=== PATIENT | female | born 1990 | race Caucasian/White ===

== ENCOUNTER 2018-02-07 11:48 | Emergency (ER) | payer MEDICAID ==
--- NOTE | 2018-02-07 12:38 | EDM.PDOC ---
ED HPI GENERAL MEDICAL PROBLEM - General Chief Complaint: ENT Problem Stated Complaint: EAR PRESSURE Time Seen by Provider: 02/07/18 12:15 Source of Information: Reports: Patient History Limitations: Reports: No Limitations - History of Present Illness INITIAL COMMENTS - FREE TEXT/NARRATIVE: Estee presents to the ER today with complaints of sinus pain/pressure, left ear pain/pressure, congestion, post nasal drip and cough with green mucus production. She reports she was in to the clinic two weeks ago and told she suffered from allergies, instructed to use nasal spray. She reports her symptoms have worsened. She has tried OTC claritin, nasal spray without much relief. 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: Neurological History: Reports: Migraines Endocrine/Metabolic History: Reports: Obesity/BMI 30+ Dermatologic History: Reports: Eczema - Past Surgical History HEENT Surgical History: Reports: Adenoidectomy, Myringotomy w Tube(s), Tonsillectomy GI Surgical History: Reports: Cholecystectomy Female Surgical History: Reports: Tubal Ligation Musculoskeletal Surgical History: Reports: Other (See Below) Other Musculoskeletal Surgeries/Procedures:: ankle surgery Social & Family History - Tobacco Use Smoking Status *Q: Former Smoker Used Tobacco, but Quit: Yes Month/Year Tobacco Last Used: 1 month ago - Caffeine Use Caffeine Use: Reports: Coffee, Energy Drinks, Soda - Recreational Drug Use Recreational Drug Use: No ED ROS ENT - Review of Systems Review Of Systems: See Below Constitutional: Denies: Fever, Chills, Weakness, Fatigue, Night Sweats HEENT: Reports: Ear Pain, Hearing Loss, Other (left ear pain with slight hearing loss/muffled sound). Denies: Dental Pain, Ear Discharge, Eye Discharge , Eye Pain, Nose Pain, Rhinitis, Sinus Problem, Throat Swelling, Vertigo Respiratory: Reports: Cough, Sputum. Denies: Shortness of Breath, Wheezing, Hemoptysis Cardiovascular: Denies: Chest Pain, Blood Pressure Problem, Dyspnea on Exertion , Edema, Lightheadedness, Palpitations, Syncope Endocrine: Reports: No Symptoms GI/Abdominal: Reports: No Symptoms : Reports: No Symptoms Musculoskeletal: Reports: No Symptoms Skin: Reports: Rash, Other (chronic eczema to chest and back, she reports no change.) Neurological: Denies: Confusion, Dizziness, Headache, Numbness, Syncope, Tingling, Weakness Psychiatric: Reports: No Symptoms Hematologic/Lymphatic: Reports: No Symptoms Immunologic: Reports: Seasonal Allergy ED EXAM, ENT - Physical Exam Exam: See Below Text/Narrative:: Estee is an alert, oriented and pleasant 27 year old female presenting with complaints of sinus congestion, left ear pain, pressure and decreased hearing as well as cough with green mucus production. She has tried use of OTC claritin and nasal spray without relief. Exam Limited By: No Limitations General Appearance: Alert, Mild Distress Eye Exam: Bilateral Eye: Normal Inspection, PERRL Ears: Normal External Exam, Normal Canal, Other (Rith TM hearing grossly normal , TM, freire, good refletion of light with visible fluid air bubbles and old scar. Left TM dull, erythematous, tender, bulging without perforatoin or discharge. ) Nose: No Blood, Clear Rhinorrhea, Nasal Swelling, Nasal Tenderness. No: Septal Deformity, Active Bleeding, Dried Blood Mouth/Throat: Normal Inspection, Normal Gums, Normal Lips, Normal Oropharynx, Normal Teeth, Hoarse Voice. No: Tonsillar Erythema, Tonsillar Exudates, Tonsillar Swelling, Uvular Edema Head: Atraumatic, Normocephalic Neck: Normal Inspection, Supple, Non-Tender, Full Range of Motion. No: Lymphadenopathy (R), Lymphadenopathy (L) Respiratory/Chest: No Respiratory Distress, Lungs Clear, Normal Breath Sounds, No Accessory Muscle Use, Chest Non-Tender Cardiovascular: Normal Peripheral Pulses, Regular Rate, Rhythm, No Edema, No Gallop, No Murmur, No Rub Extremities: Normal Inspection, Normal Range of Motion, Non-Tender, No Pedal Edema, Normal Capillary Refill Neurological: Alert, Oriented, CN II-XII Intact, Normal Cognition, Normal Gait, Normal Reflexes, No Motor/Sensory Deficits Psychiatric: Normal Affect, Normal Mood Skin: Warm, Dry, Normal Color, Other (Dried pustular fine rash to chest and abdomen without discharge, fluctuance or erythema. ) Course - Vital Signs Last Recorded V/S: Last Vital Signs Temp 36.7 C 02/07/18 12:02 Pulse 84 02/07/18 12:42 Resp 18 02/07/18 12:02 BP 130/86 02/07/18 12:42 Pulse Ox 97 02/07/18 12:02 Departure - Departure Time of Disposition: 12:37 Disposition: Home, Self-Care 01 Condition: Good Clinical Impression: Otitis media, Allergic rhinitis, Congestion of nasal sinus - Discharge Information Referrals: PCP,None [Primary Care Provider] - Forms: ED Department Discharge Additional Instructions: You have been evaluated and treated in the emergency room today for left otitis media, allergic rhinitis, congestion of the nasal sinus and allergic conjunctivitis. It would be best for you to keep yourself hydrated, decrease amount of caffeine intake. Take: Azithromycin as directed for otitis media olopatadine ophthalmic eye drop, one drop to each eye twice per day. chlorpheniramine 4mg by mouth eery 4 to 6 hours to help with congestion. Pseudoephedrine 120mg by mouth once a day to help with congestion. This medication can cause palpitations or increased heart rate, make sure to decrease caffeine intake when using. Only use for as long as needed to help with congestion. Cetirizine (zyrtec) 10mg by mouth daily for seasonal allergies. You can keep using the nasal spray that has been prescribed. Consider follow up with a primary provider to complete allergy testing. Great job with stopping cigarette use!! Keep it up!! - Assessment/Plan Assessment:: left otitis media, allergic rhinitis, congestion of the nasal sinus and allergic conjunctivitis. Plan: Patient evaluated and treated in the emergency room today for left otitis media , allergic rhinitis, congestion of the nasal sinus and allergic conjunctivitis. It would be best for her to keep yourself hydrated, decrease amount of caffeine intake. Take: Azithromycin as directed for otitis media olopatadine ophthalmic eye drop, one drop to each eye twice per day as needed. chlorpheniramine 4mg by mouth eery 4 to 6 hours to help with congestion as needed. Pseudoephedrine 120mg by mouth once a day to help with congestion as needed. This medication can cause palpitations or increased heart rate, make sure to decrease caffeine intake when using. Only use for as long as needed to help with congestion. Cetirizine (zyrtec) 10mg by mouth daily for seasonal allergies as needed. She can keep using the nasal spray that has been prescribed if she wishes. Consider follow up with a primary provider to complete allergy testing. Continue tobacco cessation.
[2018-02-07 12:42] VITALS: BP 130/86
== END 2018-02-07 12:50 | disposition home or self-care (01) ==
LOC: JP.ED 11:48
DX: H66.92 Otitis media, unspecified, left ear (principal); J30.9 Allergic rhinitis, unspecified; H10.10 Acute atopic conjunctivitis, unspecified eye; Z87.891 Personal history of nicotine dependence; Z91.040 Latex allergy status
CPT/HCPCS: 99283

== ENCOUNTER 2020-06-16 11:48 | Emergency (ER) | payer OTHER, MEDICAID ==
[2020-06-16 12:26] VITALS: BP 151/100; PULSE 113
--- NOTE | 2020-06-16 13:53 | EDM.PDOC ---
ED HPI GENERAL MEDICAL PROBLEM - General Chief Complaint: Lower Extremity Injury/Pain Stated Complaint: TWISTED ANKLE AT WORK Time Seen by Provider: 06/16/20 13:35 Source of Information: Reports: Patient, RN Notes Reviewed History Limitations: Reports: No Limitations - History of Present Illness INITIAL COMMENTS - FREE TEXT/NARRATIVE: Estee presents today for complaints of left ankle pain. She states she rolled and twisted her ankle at least 6 times since working yesterday. She reports pain with ambulation and swelling. 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 She denies fever, chills, nausea, vomiting, change in bowel/bladder or any other injuries. Left Ankle Pain Score (Numeric/FACES): 8 - Related Data Allergies Allergy/AdvReac Type Severity Reaction Status Date / Time latex Allergy Rash Verified 07/25/18 02:44 Home Meds: Home Meds EPINEPHrine [Epipen] 0.3 mg IM ONETIME PRN #2 ml 08/03/18 [Rx] Past Medical History HEENT History: Reports: Allergic Rhinitis, Impaired Vision Gastrointestinal History: Reports: Cholelithiasis Genitourinary History: Reports: Other (See Below) Other Genitourinary History: kidney surgeries has one kidney [employer] ST[employer] MA[employer]GER History: Reports: Neurological History: Reports: Migraines Endocrine/Metabolic History: Reports: Obesity/BMI 30+ Dermatologic History: Reports: Eczema - Infectious Disease History Infectious Disease History: Reports: MRSA, 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, Other - Past Surgical History HEENT Surgical History: Reports: Adenoidectomy, Myringotomy w Tube(s), Tonsillectomy GI Surgical History: Reports: Appendectomy, Cholecystectomy Female Surgical History: Reports: Tubal Ligation Musculoskeletal Surgical History: Reports: Other (See Below) Other Musculoskeletal Surgeries/Procedures:: ankle surgery Social & Family History - Tobacco Use Smoking Status *Q: Current Every Day Smoker Years of Tobacco use: 17 Packs/Tins Daily: 0.5 - Caffeine Use Caffeine Use: Reports: Coffee, Soda, Tea - Recreational Drug Use Recreational Drug Use: No Review of Systems - Review of Systems Review Of Systems: See Below Constitutional: Reports: No Symptoms Respiratory: Reports: No Symptoms Cardiovascular: Reports: No Symptoms GI/Abdominal: Reports: No Symptoms Musculoskeletal: Reports: Other (left ankle pain and edema) Skin: Reports: No Symptoms Neurological: Reports: No Symptoms Psychiatric: Reports: No Symptoms ED EXAM, GENERAL - Physical Exam Exam: See Below Exam Limited By: No Limitations General Appearance: Alert, WD/WN, No Apparent Distress Head: Atraumatic, Normocephalic Neck: Normal Inspection, Supple, Non-Tender, Full Range of Motion. No: Lymphadenopathy (R), Lymphadenopathy (L) Respiratory/Chest: No Respiratory Distress, Normal Breath Sounds, No Accessory Muscle Use, Chest Non-Tender. No: Crackles, Rales, Rhonchi, Wheezing Cardiovascular: Normal Peripheral Pulses, Regular Rate, Rhythm, No Edema, No Murmur, No Rub Peripheral Pulses: 2+: Dorsalis Pedis (L), Dorsalis Pedis (R) Back Exam: Normal Inspection, Full Range of Motion. No: CVA Tenderness (R), CVA Tenderness (L) Extremities: Normal Capillary Refill, Limited Range of Motion. No: Increased Warmth, Mottled, Pallor, Redness (decreased ROM left ankle, edema to lateral ankle with point tenderness) Neurological: Alert, Oriented, Normal Cognition, No Motor/Sensory Deficits Psychiatric: Normal Affect, Normal Mood Skin Exam: Warm, Dry, Intact, Normal Color, No Rash. No: Erythema, Rash Lymphatic: No Adenopathy Course - Vital Signs Last Recorded V/S: Last Vital Signs Temp 36.9 C 06/16/20 12:24 Pulse 113 H 06/16/20 12:24 Resp 16 06/16/20 12:24 BP 151/100 H 06/16/20 12:24 Pulse Ox 99 06/16/20 12:24 - Radiology Interpretation Free Text/Narrative:: Patient x-ray left ankle reviewed, possible non-displaced lateral malleolar fracture left ankle. Walking boot provided Crutches Rest, ice, elevate to help with pain Tylenol 1000mg by mouth for pain as needed Follow up with ortho in 7 to 10 days Repeat BP 142/88 HR 88 Departure - Departure Time of Disposition: 14:54 Disposition: Home, Self-Care 01 Clinical Impression: Left ankle sprain, Closed nondisplaced fracture of lateral malleolus - Discharge Information *PRESCRIPTION DRUG MONITORING PROGRAM REVIEWED*: Not Applicable *COPY OF PRESCRIPTION DRUG MONITORING REPORT IN PATIENT INDRA: Not Applicable Instructions: Ankle Sprain, [id number] Referrals: PCP,None [Primary Care Provider] - Forms: ED Department Discharge Additional Instructions: You have been evaluated and treated for left ankle sprain/possible lateral malleolus fracture. Walking boot provided Crutches Rest, ice, elevate to help with pain Tylenol 1000mg by mouth for pain as needed Follow up with Orthopedic in 7 to 10 days for a recheck. Referral to [facility]. Rivera warp, ice, ibuprofen and ankle brace to help with pain. Return as needed. Patient able to work with restrictions of no climbing, stairs, long periods of standing due to injury. Ortho follow up needed in 7 to 10 days. Sepsis Event Note (ED) - Evaluation Sepsis Screening Result: No Definite Risk - Focused Exam Vital Signs: Vital Signs Temp Pulse Resp BP Pulse Ox 06/16/20 12:24 36.9 C 113 H 16 151/100 H 99 - Assessment/Plan Assessment:: Left ankle sprain, Closed nondisplaced fracture of lateral malleolus Plan: Patient evaluated and treated for left ankle sprain/possible lateral malleolus fracture. Walking boot provided Crutches Rest, ice, elevate to help with pain Tylenol 1000mg by mouth for pain as needed Follow up with Orthopedic in 7 to 10 days for a recheck. Referral to [facility]. Rivera warp, ice, ibuprofen and ankle brace to help with pain. Return as needed. Patient able to work with restrictions of no climbing, stairs, long periods of standing due to injury. Ortho follow up needed in 7 to 10 days.
--- NOTE | 2020-06-16 15:26 | CR ---
Ankle Min 3V Lt CLINICAL HISTORY: Left ankle pain FINDINGS: The soft tissues are generally prominent. No acute fracture or dislocation is noted. Ankle mortise is intact. Articular surfaces are smooth Impression: No fracture or dislocation
== END 2020-06-16 15:05 | disposition home or self-care (01) ==
LOC: JP.ED 11:48
DX: S82.65XA Nondisplaced fracture of lateral malleolus of left fibula, initial encounter for closed fracture (principal); S93.402A Sprain of unspecified ligament of left ankle, initial encounter; E66.9 Obesity, unspecified; F17.210 Nicotine dependence, cigarettes, uncomplicated; Z91.040 Latex allergy status; X50.1XXA Overexertion from prolonged static or awkward postures, initial encounter
CPT/HCPCS: 73610-26-LT; 73610-LT; 99283

== ENCOUNTER 2020-08-19 20:50 | Emergency (ER) | payer MEDICAID ==
[2020-08-19 21:34] VITALS: BP 132/92; PULSE 103
[2020-08-19] MEDS ORDERED: Lidocaine 1% with EPINEPHrine 1:100,000 50 ML MDV INFILT ONE (22:09)
--- NOTE | 2020-08-19 22:52 | EDM.PDOC ---
ED HPI GENERAL MEDICAL PROBLEM - General Chief Complaint: Skin Complaint Stated Complaint: BOIL ON LT SIDE OF BUTT Time Seen by Provider: 08/19/20 22:25 Source of Information: Reports: Patient, Family History Limitations: Reports: No Limitations - History of Present Illness INITIAL COMMENTS - FREE TEXT/NARRATIVE: 3-year-old female who is a history of recurring MRSA boils, had a "pimple" on her left buttock 3 or 4 days ago which she tried to pinch and rupture. Instead over the past 3 days it has become much more inflamed and painful. No fevers or chills, no other complaints. Onset: Gradual Duration: Day(s): (3 days) Location: Reports: Other (Left buttock) Associated Symptoms: Reports: No Other Symptoms left buttock boil Pain Score (Numeric/FACES): 4 - Related Data Allergies Allergy/AdvReac Type Severity Reaction Status Date / Time latex Allergy Rash Verified 07/25/18 02:44 Home Meds: Home Meds valACYclovir HCl [valACYclovir] 1 tab PO DAILY 08/19/20 [History] Past Medical History HEENT History: Reports: Allergic Rhinitis, Impaired Vision Gastrointestinal History: Reports: Cholelithiasis Genitourinary History: Reports: Other (See Below) Other Genitourinary History: kidney surgeries has 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: Reports: Musculoskeletal History: Reports: Other (See Below) Other Musculoskeletal History: left ankle pain Neurological History: Reports: Migraines Endocrine/Metabolic History: Reports: Obesity/BMI 30+ Dermatologic History: Reports: Eczema - Infectious Disease History Infectious Disease History: Reports: Herpes, MRSA, Multidrug-Resistant Gram- Negative, Other - Past Surgical History Head Surgeries/Procedures: Reports: None HEENT Surgical History: Reports: Adenoidectomy, Myringotomy w Tube(s), Tonsillectomy GI Surgical History: Reports: Appendectomy, Cholecystectomy Female Surgical History: Reports: Tubal Ligation Musculoskeletal Surgical History: Reports: Other (See Below) Other Musculoskeletal Surgeries/Procedures:: ankle surgery Social & Family History - Family History Family Medical History: No Pertinent Family History - Tobacco Use Tobacco Use Status *Q: Current Every Day Tobacco User Years of Tobacco use: 17 Packs/Tins Daily: 0.7 - Caffeine Use Caffeine Use: Reports: Coffee, Energy Drinks, Soda, Tea - Recreational Drug Use Recreational Drug Use: No ED ROS GENERAL - Review of Systems Review Of Systems: See Below Constitutional: Denies: Fever, Chills HEENT: Reports: No Symptoms Respiratory: Reports: No Symptoms Cardiovascular: Reports: No Symptoms GI/Abdominal: Reports: No Symptoms. Denies: Constipation, Diarrhea : Reports: No Symptoms Neurological: Reports: No Symptoms ED EXAM, SKIN/RASH Exam: See Below Exam Limited By: No Limitations General Appearance: Alert, No Apparent Distress Respiratory/Chest: No Respiratory Distress Cardiovascular: Regular Rate, Rhythm Extremities: Other (Exam of the left buttock reveals a 6 or 7 cm erythematous area, slightly raised with a central scab. It is firm and very tender to palpation, no fluctuance) Neurological: Alert, Oriented Course - Vital Signs Last Recorded V/S: Last Vital Signs Temp 97.1 F 08/19/20 21:32 Pulse 103 H 08/19/20 21:32 Resp 20 08/19/20 21:32 BP 132/92 H 08/19/20 21:32 Pulse Ox 98 08/19/20 21:32 - Orders/Labs/Meds Orders: Active Orders 24 hr Category Date Time Status CULTURE WOUND + SMEAR [RM] Stat Lab 08/19/20 22:54 Results Meds: Medications Discontinued Medications Generic Name Dose Route Start Last Admin Trade Name aRj PRN Reason Stop Dose Admin Lidocaine/Epinephrine 30 ml 08/19/20 22:09 08/19/20 22:48 Xylocaine 1% With Epinephrine 1:100,000 INFILT 08/19/20 22:10 30 ml ONETIME ONE Administration - Re-Assessments/Exams Free Text/Narrative Re-Assessment/Exam: 08/19/20 22:49 The area was covered with Betadine and sterilized, then infiltrated with 1% lidocaine with epinephrine. Using a #11 scalpel a small incision was made and a very small amount of purulent material was expelled, culture obtained. 1 inch iodoform gauze was placed into the incision. Patient was placed on Bactrim DS to take twice daily, given 10 Percocet for extra pain control and encouraged to use warm compresses to the area. She can recheck in 3 to 4 days if not imp roving despite medication. Departure - Departure Time of Disposition: 22:59 Disposition: Home, Self-Care 01 Clinical Impression: Cellulitis of buttock, left - Discharge Information Instructions: Cellulitis, Adult Referrals: PCP,None [Primary Care Provider] - Forms: ED Department Discharge Care Plan Goals: Take antibiotic twice daily for at least 7 days and until healed. Warm compresses to the area will be helpful and use pain control as prescribed. Recheck in the next 3 to 4 days if not improving satisfactorily, or sooner if worsening despite treatment. Sepsis Event Note (ED) - Evaluation Sepsis Screening Result: No Definite Risk - Focused Exam Vital Signs: Vital Signs Temp Pulse Resp BP Pulse Ox 08/19/20 21:32 97.1 F 103 H 20 132/92 H 98 - My Orders Last 24 Hours: My Active Orders 08/19/20 22:54 CULTURE WOUND + SMEAR [RM] Stat - Assessment/Plan Last 24 Hours: My Active Orders 08/19/20 22:54 CULTURE WOUND + SMEAR [RM] Stat
== END 2020-08-19 23:00 | disposition home or self-care (01) ==
LOC: JP.ED 20:50
DX: L03.317 Cellulitis of buttock (principal); F17.210 Nicotine dependence, cigarettes, uncomplicated; E66.9 Obesity, unspecified; Z68.35 Body mass index [BMI] 35.0-35.9, adult; Z91.040 Latex allergy status; Z79.899 Other long term (current) drug therapy
CPT/HCPCS: 10060; 87070; 87077; 87186; 87205; 99283-25

== ENCOUNTER 2021-03-08 21:48 | Emergency (ER) | payer MEDICAID ==
[2021-03-08 22:29] VITALS: BP 149/91; PULSE 87
[2021-03-08] MEDS ORDERED: Dexamethasone 4 MG/ML SDV IVPUSH ONE (23:18)
[2021-03-08] MEDS ORDERED: Prochlorperazine 10 MG/2 ML SDV IVPUSH ONE (23:18)
[2021-03-08] MEDS ORDERED: diphenhydrAMINE 50 MG/ML SDV IVPUSH ONE (23:18)
[2021-03-08] MEDS ORDERED: Ketorolac 30 MG/ML SDV IVPUSH ONE (23:18)
[2021-03-08] MEDS ORDERED: Sodium Chloride 0.9% 10 ML Syringe FLUSH PRN (23:18)
[2021-03-08] MEDS ORDERED: Sodium Chloride 0.9% 1,000 ML IV SCH (23:30)
--- NOTE | 2021-03-09 00:10 | EDM.PDOC ---
ED HPI GENERAL MEDICAL PROBLEM - General Chief Complaint: Headache Stated Complaint: MIGRAINE AND FACIAL NUMBNESS Time Seen by Provider: 03/08/21 23:11 Source of Information: Reports: Patient History Limitations: Reports: No Limitations - History of Present Illness INITIAL COMMENTS - FREE TEXT/NARRATIVE: Estee is a 31-year-old female presenting to the ED for evaluation of severe headache and left facial numbness. Patient also states that she has a fullness in the left ear. She has a history significant for recurrent otitis media and perforation of the left eardrum status post repair in December 2020. The patient is currently on cefdinir and eardrops for otitis media and externa. She denies any fever or chills. Her headache is predominantly left-sided and is causing p hotophobia. Patient states that she cannot tolerate any light and when she closes her eyes she has significant vertigo with room spinning. She is experiencing some nausea but denies any new onset of numbness, tingling, or weakness in the upper or lower extremities. The facial numbness is new. She denies any trauma. She does have a history of migraine but they are never usually this bad. The symptoms started around 2 PM this afternoon. She also reports that she has a nerve impingement in her cervical spine, however, I believe that this is on the right. migraine Pain Score (Numeric/FACES): 8 - Related Data Allergies Allergy/AdvReac Type Severity Reaction Status Date / Time latex Allergy Rash Verified 03/08/21 22:25 Home Meds: Home Meds Cefdinir 300 mg PO BID 03/08/21 [History] Ofloxacin [Floxin 0.3% Otic Soln] 5 drop EARLF BID 03/08/21 [History] Past Medical History HEENT History: Reports: Allergic Rhinitis, Impaired Vision, Otitis Media Gastrointestinal History: Reports: Cholelithiasis Genitourinary History: Reports: Chronic Renal Insuffiency, Other (See Below) Other Genitourinary History: kidney surgeries has one kidney [employer] History: Reports: Musculoskeletal History: Reports: Other (See Below) Other Musculoskeletal History: left ankle pain Neurological History: Reports: Migraines Endocrine/Metabolic History: Reports: Obesity/BMI 30+ Dermatologic History: Reports: Eczema - Infectious Disease History Infectious Disease History: Reports: Chicken Pox, Herpes, Influenza, MRSA, 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, Other, Shingles - Past Surgical History Head Surgeries/Procedures: Reports: None HEENT Surgical History: Reports: Adenoidectomy, Myringotomy w Tube(s), Tonsillectomy, Other (See Below) Other HEENT Surgeries/Procedures: perf eardrum - surgery 01/17 GI Surgical History: Reports: Appendectomy, Cholecystectomy Female Surgical History: Reports: Nephrectomy, Tubal Ligation Musculoskeletal Surgical History: Reports: Other (See Below) Other Musculoskeletal Surgeries/Procedures:: ankle surgery Social & Family History - Family History Family Medical History: No Pertinent Family History - Tobacco Use Tobacco Use Status *Q: Current Every Day Tobacco User Years of Tobacco use: 10 Packs/Tins Daily: 0.5 - Caffeine Use Caffeine Use: Reports: Coffee, Energy Drinks, Soda, Tea ED ROS GENERAL - Review of Systems Review Of Systems: See Below Constitutional: Reports: No Symptoms HEENT: Reports: Ear Pain (Left ear fullness, currently on antibiotics for otitis media.), Vertigo (When eyes are closed), Vision Change (Photophobia and blurred vision) Respiratory: Reports: No Symptoms Cardiovascular: Reports: No Symptoms Endocrine: Reports: No Symptoms GI/Abdominal: Reports: Nausea : Reports: No Symptoms Musculoskeletal: Reports: Neck Pain (Chronic) Skin: Reports: No Symptoms Neurological: Reports: Dizziness (Vertiginous symptoms when eyes are closed), Headache (Severe left-sided throbbing headache), Tingling (Left facial tingling) Psychiatric: Reports: No Symptoms Hematologic/Lymphatic: Reports: No Symptoms Immunologic: Reports: No Symptoms - Physical Exam Exam: See Below Exam Limited By: No Limitations General Appearance: Alert, Anxious, Moderate Distress Eye Exam: Bilateral Eye: EOMI, PERRL Ears: Normal External Exam, Normal Canal, Other (Scarring of the left TM without erythema or distention. The right TM is normal.) Nose: Normal Inspection, Normal Mucosa Throat/Mouth: Normal Inspection, Normal Lips, Normal Oropharynx, Normal Voice, No Airway Compromise Head Exam: Atraumatic, Normocephalic Neck: Normal Inspection, Supple, Full Range of Motion Respiratory/Chest: No Respiratory Distress, Lungs Clear, Normal Breath Sounds Cardiovascular: Normal Peripheral Pulses, Regular Rate, Rhythm, No Murmur GI/Abdominal: Normal Bowel Sounds, Soft, Non-Tender Neuro Exam (Abbreviated): Alert, Oriented, CN II-XII Intact, Normal Cognition, No Motor/Sensory Deficits Extremities: Normal Inspection, Normal Range of Motion Psychiatric: Normal Affect, Normal Mood Skin Exam: Warm, Dry, Intact, Normal Color Course - Vital Signs Last Recorded V/S: Last Vital Signs Temp 36.7 C 03/08/21 22:36 Pulse 87 03/08/21 22:36 Resp 18 03/08/21 22:36 BP 149/91 H 03/08/21 22:36 Pulse Ox 99 03/08/21 22:36 - Orders/Labs/Meds Orders: Active Orders 24 hr Category Date Time Status Sodium Chloride 0.9% [Normal Saline] 1,000 ml Med 03/08/21 23:30 Active IV ASDIRECTED Sodium Chloride 0.9% [Saline Flush] Med 03/08/21 23:18 Active 10 ml FLUSH ASDIRECTED PRN Saline Lock Insert [OM.PC] Routine Oth 03/08/21 23:18 Ordered Medication Orders Sodium Chloride (Normal Saline) 1,000 mls @ 999 mls/hr IV ASDIRECTED KAREN Last Admin: 03/08/21 23:39 Dose: 999 mls/hr Documented by: JEFF Sodium Chloride (Sodium Chloride 0.9% 10 Ml Syringe) 10 ml FLUSH ASDIRECTED PRN PRN Reason: Keep Vein Open Last Admin: 03/08/21 23:40 Dose: 10 ml Documented by: JEFF Meds: Medications Generic Name Dose Route Start Last Admin Trade Name Freq PRN Reason Stop Dose Admin Sodium Chloride 1,000 mls @ 999 mls/hr 03/08/21 23:30 03/08/21 23:39 Normal Saline IV 999 mls/hr ASDIRECTED KAREN Administration Sodium Chloride 10 ml 03/08/21 23:18 03/08/21 23:40 Sodium Chloride 0.9% 10 Ml Syringe FLUSH 10 ml ASDIRECTED PRN Administration Keep Vein Open Discontinued Medications Generic Name Dose Route Start Last Admin Trade Name Freq PRN Reason Stop Dose Admin Dexamethasone 10 mg 03/08/21 23:18 03/08/21 23:41 Dexamethasone 4 Mg/Ml Sdv IVPUSH 03/08/21 23:19 10 mg ONETIME ONE Administration Diphenhydramine HCl 50 mg 03/08/21 23:18 03/08/21 23:39 Diphenhydramine 50 Mg/Ml Sdv IVPUSH 03/08/21 23:19 50 mg ONETIME ONE Administration Ketorolac Tromethamine 30 mg 03/08/21 23:18 03/08/21 23:39 Ketorolac 30 Mg/Ml Sdv IVPUSH 03/08/21 23:19 30 mg ONETIME ONE Administration Prochlorperazine Edisylate 10 mg 03/08/21 23:18 03/08/21 23:39 Prochlorperazine 10 Mg/2 Ml Sdv IVPUSH 03/08/21 23:19 10 mg ONETIME ONE Administration - Re-Assessments/Exams Free Text/Narrative Re-Assessment/Exam: 03/09/21 00:10 we initiated headache protocol giving the patient a liter of IV normal saline, diphenhydramine 50 mg IV, Compazine 10 mg IV, Toradol 15 mg IV, and dexamethasone 10 mg IV. 03/09/21 00:41 patient is feeling much better after receiving the medications and hydration. At this time she is wanting to go home and go to sleep. Indications return to the ED were discussed and she was discharged in satisfactory condition. Departure - Departure Time of Disposition: 00:41 Disposition: Home, Self-Care 01 Clinical Impression: Left facial numbness Headache, migraine, intractable Qualifiers: Migraine type: unspecified Status migrainosus presence: without status migrainosus Qualified Code(s): G43.919 - Migraine, unspecified, intractable, without status migrainosus - Discharge Information Instructions: Migraine Headache, [id number] Referrals: PCP,None [Primary Care Provider] - Forms: ED Department Discharge Care Plan Goals: I am glad you are feeling better after the cocktail of medications. Hopefully by morning when you wake up the headache will be completely gone. Should it significantly worsen, please return to the ED for reevaluation. Sepsis Event Note (ED) - Evaluation Sepsis Screening Result: No Definite Risk - Focused Exam Vital Signs: Vital Signs Temp Pulse Resp BP Pulse Ox 03/08/21 22:36 36.7 C 87 18 149/91 H 99 03/08/21 22:29 87 18 149/91 H 99 03/08/21 21:55 36.6 C 89 16 149/91 H 100 - Problem List & Annotations (1) Headache, migraine, intractable SNOMED Code(s): 182542580 Code(s): G43.919 - MIGRAINE, UNSP, INTRACTABLE, WITHOUT STATUS MIGRAINOSUS Status: Acute Priority: Medium Current Visit: Yes Qualifiers: Migraine type: unspecified Status migrainosus presence: without status migrainosus Qualified Code(s): G43.919 - Migraine, unspecified, intractable, without status migrainosus - Problem List Review Problem List Initiated/Reviewed/Updated: Yes - My Orders Last 24 Hours: My Active Orders 03/08/21 23:18 Sodium Chloride 0.9% [Saline Flush] 10 ml FLUSH ASDIRECTED PRN Saline Lock Insert [OM.PC] Routine 03/08/21 23:30 Sodium Chloride 0.9% [Normal Saline] 1,000 ml IV ASDIRECTED - Assessment/Plan Last 24 Hours: My Active Orders 03/08/21 23:18 Sodium Chloride 0.9% [Saline Flush] 10 ml FLUSH ASDIRECTED PRN Saline Lock Insert [OM.PC] Routine 03/08/21 23:30 Sodium Chloride 0.9% [Normal Saline] 1,000 ml IV ASDIRECTED
== END 2021-03-09 01:01 | disposition home or self-care (01) ==
LOC: JP.ED 21:48
DX: G43.919 Migraine, unspecified, intractable, without status migrainosus (principal); R20.0 Anesthesia of skin; E66.9 Obesity, unspecified; Z68.30 Body mass index [BMI] 30.0-30.9, adult; Z91.040 Latex allergy status; Z72.0 Tobacco use
CPT/HCPCS: 96374; 96375; 99283; J0780; J1100; J1200; J1885; J7030

== ENCOUNTER 2021-06-26 10:58 | Emergency (ER) | payer MEDICAID ==
[2021-06-26] MEDS ORDERED: Sodium Chloride 0.9% 500 ML IV ONE (11:35)
[2021-06-26] MEDS ORDERED: Sodium Chloride 0.9% 10 ML Syringe FLUSH PRN (11:35)
--- NOTE | 2021-06-26 11:38 | EDM.PDOC ---
ED HPI GENERAL MEDICAL PROBLEM - General Chief Complaint: Respiratory Problem Stated Complaint: DIFFICULTY BREATHING Time Seen by Provider: 06/26/21 11:35 Source of Information: Reports: Patient, RN Notes Reviewed History Limitations: Reports: No Limitations - History of Present Illness INITIAL COMMENTS - FREE TEXT/NARRATIVE: 31-year-old female presents with strep, she recently underwent eardrum repair 4 days prior surgical intervention, did report her primary care today complaint of shortness of breath mildly tachycardic she is not hypoxic states shortness of breath gets significantly worse when she exerts herself no chest pain - Related Data Allergies Allergy/AdvReac Type Severity Reaction Status Date / Time latex Allergy Intermediate Rash Verified 06/26/21 11:14 Home Meds: Home Meds Ofloxacin [Floxin 0.3% Otic Soln] 5 drop EARLF BID 03/08/21 [History] Ketorolac [Toradol] 10 mg PO Q6H PRN 06/26/21 [History] Past Medical History HEENT History: Reports: Allergic Rhinitis, Impaired Vision, Otitis Media Respiratory History: Reports: Other (See Below) Other Respiratory History: inflammation between ribs and lungs, flares up occasionally Gastrointestinal History: Reports: Cholelithiasis Genitourinary History: Reports: Chronic Renal Insuffiency, Other (See Below) Other Genitourinary History: kidney surgeries has one kidney [employer]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: Musculoskeletal History: Reports: Other (See Below) Other Musculoskeletal History: left ankle pain Neurological History: Reports: Migraines Endocrine/Metabolic History: Reports: Obesity/BMI 30+ Dermatologic History: Reports: Eczema - Infectious Disease History Infectious Disease History: Reports: Chicken Pox, Herpes, Influenza, MRSA, 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, Other, Shingles - Past Surgical History Head Surgeries/Procedures: Reports: None HEENT Surgical History: Reports: Adenoidectomy, Myringotomy w Tube(s), Tonsillectomy, Other (See Below) Other HEENT Surgeries/Procedures: perf eardrum - surgery 01/17 GI Surgical History: Reports: Appendectomy, Cholecystectomy Female Surgical History: Reports: Nephrectomy, Tubal Ligation Musculoskeletal Surgical History: Reports: Other (See Below) Other Musculoskeletal Surgeries/Procedures:: ankle surgery Social & Family History - Family History Family Medical History: No Pertinent Family History - Tobacco Use Tobacco Use Status *Q: Current Every Day Tobacco User Years of Tobacco use: 16 Packs/Tins Daily: 0.5 - Caffeine Use Caffeine Use: Reports: Coffee, Energy Drinks, Soda, Tea - Recreational Drug Use Recreational Drug Use: No ED ROS GENERAL - Review of Systems Review Of Systems: See Below Constitutional: Reports: No Symptoms HEENT: Reports: No Symptoms Respiratory: Reports: Shortness of Breath. Denies: Wheezing, Cough, Sputum Cardiovascular: Reports: Dyspnea on Exertion GI/Abdominal: Reports: No Symptoms ED EXAM, GENERAL - Physical Exam Exam: See Below Exam Limited By: No Limitations General Appearance: Alert, WD/WN, No Apparent Distress Respiratory/Chest: No Respiratory Distress, Lungs Clear, Normal Breath Sounds, No Accessory Muscle Use, Chest Non-Tender Cardiovascular: No Murmur, Tachycardia GI/Abdominal: Soft, Non-Tender Course - Vital Signs Last Recorded V/S: Last Vital Signs Temp 98.0 F 06/26/21 11:23 Pulse 86 06/26/21 12:39 Resp 18 06/26/21 12:39 BP 144/85 H 06/26/21 12:39 Pulse Ox 99 06/26/21 12:39 - Orders/Labs/Meds Orders: Active Orders 24 hr Category Date Time Status Peripheral IV Care [RC] . DIRECTED Care 06/26/21 11:36 Active Sodium Chloride 0.9% [Normal Saline] 90 ml Med 06/26/21 12:15 Active IV ASDIRECTED Sodium Chloride 0.9% [Saline Flush] Med 06/26/21 11:35 Active 10 ml FLUSH ASDIRECTED PRN Peripheral IV Insertion Adult [OM.PC] Urgent Oth 06/26/21 11:35 Ordered Medication Orders Sodium Chloride (Normal Saline) 90 mls @ 4 mls/sec IV ASDIRECTED KAREN Last Admin: 06/26/21 12:17 Dose: 4 mls/sec Documented by: [email or web address] Sodium Chloride (Sodium Chloride 0.9% 10 Ml Syringe) 10 ml FLUSH ASDIRECTED PRN PRN Reason: Keep Vein Open Last Admin: 06/26/21 11:56 Dose: 10 ml Documented by: [id number] Labs: Laboratory Tests 06/26/21 06/26/21 Range/Units 11:49 11:49 WBC 12.8 H (4.5-11.0) K/uL RBC 5.11 (3.30-5.50) M/uL Hgb 14.2 (12.0-15.0) g/dL Hct 41.8 (36.0-48.0) % MCV 82 (80-98) fL MCH 28 (27-31) pg MCHC 34 (32-36) % Plt Count 307 (150-400) K/uL Neut % (Auto) 73.6 H (36-66) % Lymph % (Auto) 20.1 L (24-44) % Victoria % (Auto) 5.2 (2-6) % Eos % (Auto) 0.9 L (2-4) % Baso % (Auto) 0.2 (0-1) % Sodium 139 L (140-148) mmol/L Potassium 4.1 (3.6-5.2) mmol/L Chloride 103 (100-108) mmol/L Carbon Dioxide 26 (21-32) mmol/L Anion Gap 14.1 H (5.0-14.0) mmol/L BUN 13 (7-18) mg/dL Creatinine 0.9 (0.6-1.0) mg/dL Est Cr Clr Drug Dosing 84.79 mL/min Estimated GFR (MDRD) > 60 (>60) Glucose 102 (74-106) mg/dL Calcium 9.0 (8.5-10.1) mg/dL Troponin I < 0.017 (0.000-0.056) ng/mL Meds: Medications Generic Name Dose Route Start Last Admin Trade Name Freq PRN Reason Stop Dose Admin Sodium Chloride 90 mls @ 4 mls/sec 06/26/21 12:15 06/26/21 12:17 Normal Saline IV 4 mls/sec ASDIRECTED KAREN Administration Sodium Chloride 10 ml 06/26/21 11:35 06/26/21 11:56 Sodium Chloride 0.9% 10 Ml Syringe FLUSH 10 ml ASDIRECTED PRN Administration Keep Vein Open Discontinued Medications Generic Name Dose Route Start Last Admin Trade Name Freq PRN Reason Stop Dose Admin Sodium Chloride 500 mls @ 999 mls/hr 06/26/21 11:35 06/26/21 11:52 Normal Saline IV 06/26/21 12:05 999 mls/hr .BOLUS ONE Administration Iopamidol 100 ml 06/26/21 12:03 06/26/21 12:17 Iopamidol 755 Mg/Ml 100 Ml Bottle IV 06/26/21 12:04 100 ml . DIRECTED ONE Administration Departure - Departure Time of Disposition: 13:17 Disposition: Home, Self-Care 01 Condition: Fair Clinical Impression: Dyspnea on exertion - Discharge Information Instructions: Shortness of Breath, Adult Referrals: Connie Dang CNM [Primary Care Provider] - Forms: ED Department Discharge Additional Instructions: Try prednisone 20 mg once a day for 3 days, recommend follow-up with pulmonary medicine for further evaluation, call return to the emergency department Sepsis Event Note (ED) - Evaluation Sepsis Screening Result: No Definite Risk - Focused Exam Vital Signs: Vital Signs Temp Pulse Resp BP Pulse Ox 06/26/21 12:39 86 18 144/85 H 99 06/26/21 11:23 98.0 F 98 166/94 H 98 06/26/21 11:14 98.0 F 98 15 166/94 H 98 - My Orders Last 24 Hours: My Active Orders 06/26/21 11:35 Sodium Chloride 0.9% [Saline Flush] 10 ml FLUSH ASDIRECTED PRN Peripheral IV Insertion Adult [OM.PC] Urgent 06/26/21 11:36 Peripheral IV Care [RC] . DIRECTED 06/26/21 12:15 Sodium Chloride 0.9% [Normal Saline] 90 ml IV ASDIRECTED - Assessment/Plan Last 24 Hours: My Active Orders 06/26/21 11:35 Sodium Chloride 0.9% [Saline Flush] 10 ml FLUSH ASDIRECTED PRN Peripheral IV Insertion Adult [OM.PC] Urgent 06/26/21 11:36 Peripheral IV Care [RC] . 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 Would try short course of prednisone 20 mg once a day for 3 days just to see if this helps with her chest discomfort also recommend that she follow-up with pulmonary medicine for further evaluation This note was dictated using [employer] voice recognition software please call with any questions on syntax or grammar.
[2021-06-26] MEDS ORDERED: Iopamidol 755 Mg/ML 100 ML Bottle IV ONE (12:03)
[2021-06-26] MEDS ORDERED: Sodium Chloride 0.9% 90 ML IV SCH (12:15)
[2021-06-26 12:39] VITALS: BP 144/85; PULSE 86
--- NOTE | 2021-06-26 12:57 | CT ---
Ang Chest CLINICAL HISTORY: Postop tachycardia, SOB TECHNIQUE: Axial scans were obtained from the thoracic inlet to the lung bases following IV infusion of iodinated contrast. Auto dosage reduction and iterative reconstructrion techniques employed. COMPARISON: None. FINDINGS: Lung window images show a 3 mm nodule in the right upper lobe on image #[id number]. This may be partially calcified. Mediastinal window images show no mediastinal mass or suspicious lymphadenopathy. There is a hiatal hernia. No filling defects identified in the pulmonary arteries. The aorta is free of aneurysm. . Scans into the upper abdomen show no mass or suspicious adenopathy. IMPRESSION: No evidence of pulmonary embolus No pulmonary mass or infiltrate seen. There is no suspicious adenopathy 3 mm pulmonary nodule right upper lobe. This is of doubtful significance
== END 2021-06-26 13:52 | disposition home or self-care (01) ==
LOC: JP.ED 10:58
DX: R06.02 Shortness of breath (principal); E66.9 Obesity, unspecified; Z72.0 Tobacco use; Z68.34 Body mass index [BMI] 34.0-34.9, adult; Z91.040 Latex allergy status
CPT/HCPCS: 36415; 71275; 80048; 84484; 85025; 99285; J7040; Q9967

== ENCOUNTER 2021-10-19 13:55 | Emergency (ER) | payer MEDICAID ==
[2021-10-19 14:31] VITALS: BP 145/88; PULSE 89
[2021-10-19] MEDS ORDERED: Sodium Chloride 0.9% 80 ML IV SCH (18:00)
[2021-10-19] MEDS ORDERED: Sodium Chloride 0.9% 1,000 ML IV SCH (18:00)
[2021-10-19] MEDS ORDERED: Iopamidol 612 MG/ML 100 ML Bottle IV SCH (18:00)
[2021-10-19] MEDS ORDERED: cefTRIAXone 1 GM in Sodium Chloride 0.9% 50 ML IV ONE (19:14)
[2021-10-19] MEDS ORDERED: Ketorolac 30 MG/ML SDV IVPUSH ONE (19:15)
== END 2021-10-19 20:10 | disposition home or self-care (01) ==
LOC: JP.ED 13:55
DX: N39.0 Urinary tract infection, site not specified (principal); N18.9 Chronic kidney disease, unspecified; E66.9 Obesity, unspecified; Z68.34 Body mass index [BMI] 34.0-34.9, adult; Z72.0 Tobacco use; Z91.040 Latex allergy status; Z90.710 Acquired absence of both cervix and uterus
CPT/HCPCS: 36415; 74177; 80053; 81001; 85025; 86140; 87086; 96365; 96375; 99284; J0696; J1885; J7030; Q9967

== ENCOUNTER 2022-09-01 13:23 | Emergency (ER) | payer MEDICAID ==
[2022-09-01 13:50] VITALS: BP 133/90; PULSE 89
[2022-09-01] MEDS ORDERED: Ketorolac 30 MG/ML SDV IM ONE (14:15)
== END 2022-09-01 15:16 | disposition home or self-care (01) ==
LOC: JP.ED 13:23
DX: M79.644 Pain in right finger(s) (principal); N18.9 Chronic kidney disease, unspecified; F17.210 Nicotine dependence, cigarettes, uncomplicated; E66.9 Obesity, unspecified; Z68.36 Body mass index [BMI] 36.0-36.9, adult; Z91.040 Latex allergy status
CPT/HCPCS: 73140; 96372; 99283; J1885